=== PATIENT | female | born 1995 | race Caucasian/White ===

== ENCOUNTER 2018-07-15 20:20 | Emergency (ER) | payer BC ==
[~2018-07-15] VITALS: Ht 175.3 cm; Wt 72.7 kg
[2018-07-15 20:25] VITALS: BP 121/77
[2018-07-15] MEDS ORDERED: ibuprofen tablet 400 MG TABLET PO ONE (21:20)
== END 2018-07-15 21:42 | disposition home or self-care (01) ==
LOC: ER 20:20
DX: S00.33XA Contusion of nose, initial encounter (principal); S09.8XXA Other specified injuries of head, initial encounter; W22.8XXA Striking against or struck by other objects, initial encounter; Y92.89 Other specified places as the place of occurrence of the external cause; Y93.89 Activity, other specified; Y99.8 Other external cause status
CPT/HCPCS: 99282